=== PATIENT | female | born 1935 | race Two or more races ===

== ENCOUNTER 2016-06-22 16:18 | Inpatient (IN) | payer OTHER, MEDICAID ==
[~2016-06-22] VITALS: Ht 157.5 cm; Wt 66.5 kg
[2016-06-22 17:48] LABS: Basophils # (auto) 0 uL; Basophils % (auto) 0.7 % (0.0-2.0); Eosinophils # (auto) 0.2 uL; Eosinophils % (auto) 4.8 % (0.0-7.0); Hematocrit 42.6 % (36.0-46.0); Hemoglobin 14.1 g/dL (12.2-16.2); Lymphocytes # (auto) 1.4 uL; Lymphocytes % (auto) 26.4 % (10.0-50.0); Mean Corpuscular Hemoglobin 28.4 pg (28.0-32.0); Mean Corpuscular Volume 86.1 fL (80.0-100.0); Mean Platelet Volume 7.8 fL (7.4-10.4); Monocytes # (auto) 0.5 uL; Monocytes % (auto) 9.3 % (0.0-12.0); Neutrophils % (auto) 58.8 % (37.0-80.0); Platelet Count (auto) 156 10^3/uL (140-450); Red Cell Distribution Width 17.8 % (11.6-16.0); White Blood Cell 5.2 10^3/uL (4.4-10.8)
[2016-06-22 18:18] LABS: Albumin 3.3 g/dL (3.4-5.0); BUN/Creatinine Ratio 13.7; Bilirubin, Total 1.1 mg/dL (0.2-1.0); Calcium 9.5 mg/dL (8.5-10.1); Potassium 4.2 mmol/L (3.5-5.1); Total Protein 8.6 g/dL (6.4-8.2)
[2016-06-22] MEDS ORDERED: NITROGLYCERIN 0.2MG/HR TOPICAL PATCH TD ONE (19:45)
[2016-06-22] MEDS ORDERED: ONDANSETRON HCL 4 MG/2 ML VIAL IV ONE (19:45)
[2016-06-22] MEDS ORDERED: ASPirin 81 mg TAB PO ONE (19:45)
[2016-06-22] MEDS ORDERED: MORPHINE SULF INJ 2 MG/ML SYRINGE 1ML IV ONE (19:45)
[2016-06-22] MEDS ORDERED: ENOXAPARIN SOD 100 MG/1 ML SYRINGE SC ONE (19:45)
[2016-06-22 20:18] LABS: INR 1.1 (0.9-1.15); Partial Thromboplastin Time 26.1 sec (22.64-33.71); Prothrombin Time 11.9 sec (9.37-12.3)
[2016-06-22 20:54] LABS: B-Type Natriuretic Peptide 96.61 pg/mL (0-100)
[2016-06-22 21:03] LABS: Temperature: 23.1 C (20.0-25.0)
[2016-06-23] MEDS ORDERED: NITROGLYCERIN 0.4 MG SL TAB SL PRN (07:15)
[2016-06-23] MEDS ORDERED: MORPHINE SULF INJ 2 MG/ML SYRINGE 1ML IV PRN ×2 (07:15→07:30)
[2016-06-23] MEDS ORDERED: NITROGLYCERIN 0.4 MG SL TAB SL ONE (07:30)
[2016-06-23] MEDS ORDERED: DEXTROSE (50%) 50ML SYRG IV PRN (07:30)
[2016-06-23] MEDS ORDERED: ONDANSETRON HCL 4 MG/2 ML VIAL IV PRN (07:30)
[2016-06-23] MEDS ORDERED: ENOXAPARIN SOD 60 MG/0.6 ML SYRINGE SC ONE (07:30)
[2016-06-23 07:45] LABS: Albumin 3.2 g/dL (3.4-5.0); BUN/Creatinine Ratio 14.7; Bilirubin, Total 0.9 mg/dL (0.2-1.0); Calcium 9.2 mg/dL (8.5-10.1); Potassium 3.6 mmol/L (3.5-5.1); Total Protein 7.4 g/dL (6.4-8.2)
[2016-06-23 08:41] LABS: Basophils # (auto) 0 uL; Basophils % (auto) 0.8 % (0.0-2.0); Eosinophils # (auto) 0.2 uL; Eosinophils % (auto) 4.9 % (0.0-7.0); Hematocrit 40.6 % (36.0-46.0); Hemoglobin 13.2 g/dL (12.2-16.2); Lymphocytes # (auto) 1.4 uL; Lymphocytes % (auto) 31.5 % (10.0-50.0); Mean Corpuscular Hemoglobin 27.9 pg (28.0-32.0); Mean Corpuscular Hgb Conc. 32.6 g/dL (32.0-36.0); Mean Corpuscular Volume 85.6 fL (80.0-100.0); Monocytes # (auto) 0.5 uL; Monocytes % (auto) 10.5 % (0.0-12.0); Neutrophils # (auto) 2.4 uL; Neutrophils % (auto) 52.3 % (37.0-80.0); Platelet Count (auto) 123 10^3/uL (140-450); Red Cell Distribution Width 17.7 % (11.6-16.0); White Blood Cell 4.6 10^3/uL (4.4-10.8)
[2016-06-23 08:44] LABS: Urine Bilirubin Negative (Negative); Urine Color PINK (Yellow); Urine Glucose Normal (Normal); Urine Ketone Negative (Negative); Urine Nitrite Negative (Negative); Urine RBC 1644 /hpf (0 - 4); Urine Squamous Epithelial Cell FEW /hpf (<5); Urine Urobilinogen Normal (Negative); Urine pH 5.5 (5.0-8.0)
[2016-06-23 08:45] LABS: Urine Blood 3+ /uL (Negative)
[2016-06-23] MEDS ORDERED: cefTRIAXone 1GM/50ML D5W 50 ML IV SCH (09:00)
[2016-06-23] MEDS ORDERED: cefTRIAXone 1GM/50ML D5W 50 ML IV ONE (09:43)
[2016-06-23] MEDS ORDERED: LEVOFLOXACIN 500MG 100 ML IV ONE (09:45)
[2016-06-23] MEDS ORDERED: SOD CHL 0.45% 1,000 ML IV SCH (09:45)
[2016-06-23] MEDS: InsuLIN REG 1unit/0.01ml Soln (100units/ml) SC SCH ×2 (11:54→18:00)
[2016-06-23] MEDS: ACCU-CHEK COMFORT CURVE STRIP VI SCH ×2 (11:54→18:17)
[2016-06-23] MEDS ORDERED: INSU1.2I SC (12:29)
[2016-06-23] MEDS ORDERED: METO-158 PO (12:33)
[2016-06-23] MEDS ORDERED: SIMV-8 PO (12:33)
[2016-06-23] MEDS ORDERED: PANT1INJ3 IV (12:33)
[2016-06-23] MEDS ORDERED: FURO20TA PO (12:33)
[2016-06-23] MEDS ORDERED: CLON0.1T PO (12:33)
[2016-06-23] MEDS ORDERED: LOSA50TA6 PO (12:33)
[2016-06-23 13:00] VITALS: BP 135/65
[2016-06-23] MEDS ORDERED: SODIUM CHLORIDE 0.9% 1,000 ML IV SCH (14:30)
[2016-06-23 16:59] VITALS: BP 139/68
[2016-06-23 21:30] VITALS: BP 128/71
[2016-06-23] MEDS ORDERED: ENOXAPARIN SOD 60 MG/0.6 ML SYRINGE SC SCH (22:00)
[2016-06-23] MEDS ORDERED: ACETYLCYSTEINE 20%(200MG/ML) SOL 4ML ONE (22:25)
[2016-06-23] MEDS: ACETYLCYSTEINE ORAL for CIN 20%(200MG/ML) 4ML PO SCH (22:59)
[2016-06-24] MEDS: D5W/SOD CHL 0.45% 1,000 ML IV SCH ×3 (00:20→21:11)
[2016-06-24] MEDS: InsuLIN REG 1unit/0.01ml Soln (100units/ml) SC SCH ×5 (00:21→23:41)
[2016-06-24] MEDS: ACCU-CHEK COMFORT CURVE STRIP VI SCH ×5 (00:21→23:41)
[2016-06-24 04:41] VITALS: BP 138/54
[2016-06-24 06:30] LABS: Albumin 2.9 g/dL (3.4-5.0); BUN/Creatinine Ratio 16.6; Bilirubin, Total 0.6 mg/dL (0.2-1.0); Calcium 8.1 mg/dL (8.5-10.1); Potassium 3.9 mmol/L (3.5-5.1); Total Protein 6.9 g/dL (6.4-8.2)
[2016-06-24 08:00] VITALS: BP 155/64
[2016-06-24 08:42] VITALS: BP 155/64
[2016-06-24 08:49] LABS: Basophils # (auto) 0 uL; Basophils % (auto) 0.5 % (0.0-2.0); Eosinophils # (auto) 0.2 uL; Eosinophils % (auto) 5.7 % (0.0-7.0); Hematocrit 37.2 % (36.0-46.0); Hemoglobin 12.2 g/dL (12.2-16.2); Lymphocytes # (auto) 0.9 uL; Lymphocytes % (auto) 28.6 % (10.0-50.0); Mean Corpuscular Hemoglobin 28.2 pg (28.0-32.0); Mean Corpuscular Hgb Conc. 32.7 g/dL (32.0-36.0); Mean Corpuscular Volume 86.3 fL (80.0-100.0); Mean Platelet Volume 7.9 fL (7.4-10.4); Monocytes # (auto) 0.4 uL; Monocytes % (auto) 13.6 % (0.0-12.0); Neutrophils # (auto) 1.7 uL; Neutrophils % (auto) 51.6 % (37.0-80.0); Platelet Count (auto) 118 10^3/uL (140-450); Red Cell Distribution Width 17.5 % (11.6-16.0); White Blood Cell 3.3 10^3/uL (4.4-10.8)
[2016-06-24 09:04] LABS: INR 1.07 (0.9-1.15); Partial Thromboplastin Time 28.9 sec (22.64-33.71); Prothrombin Time 11.6 sec (9.37-12.3)
[2016-06-24] MEDS ORDERED: ASPirin-EC 81 mg tab PO SCH (10:00)
[2016-06-24] MEDS: ACETYLCYSTEINE ORAL for CIN 20%(200MG/ML) 4ML PO SCH ×2 (10:00→22:09)
[2016-06-24 10:25] LABS: Urine Bilirubin Negative (Negative); Urine Color PINK (Yellow); Urine Glucose Normal (Normal); Urine Ketone Negative (Negative); Urine Nitrite Negative (Negative); Urine RBC 1102 /hpf (0 - 4); Urine Squamous Epithelial Cell FEW /hpf (<5); Urine Urobilinogen Normal (Negative); Urine pH 6.5 (5.0-8.0)
[2016-06-24 10:26] LABS: Urine Blood 3+ /uL (Negative)
[2016-06-24] MEDS: cefTRIAXone 1GM/50ML D5W 50 ML IV SCH (10:31)
[2016-06-24 12:09] VITALS: BP 127/61
[2016-06-24 17:08] VITALS: BP 148/78
[2016-06-24] MEDS ORDERED: ATORVASTATIN 20 MG TAB PO SCH (22:00)
[2016-06-24 22:09] VITALS: BP 160/77
[2016-06-25 04:45] VITALS: BP 157/91
[2016-06-25] MEDS: D5W/SOD CHL 0.45% 1,000 ML IV SCH (06:00)
[2016-06-25] MEDS: InsuLIN REG 1unit/0.01ml Soln (100units/ml) SC SCH ×3 (06:35→18:00)
[2016-06-25] MEDS: ACCU-CHEK COMFORT CURVE STRIP VI SCH ×3 (06:36→18:00)
[2016-06-25 07:49] LABS: Urine Bilirubin Negative (Negative); Urine Color Yellow (Yellow); Urine Glucose TRACE mg/dL (Normal); Urine Ketone Negative (Negative); Urine Nitrite Negative (Negative); Urine RBC 5 /hpf (0 - 4); Urine Squamous Epithelial Cell FEW /hpf (<5); Urine Urobilinogen Normal (Negative)
[2016-06-25 07:51] LABS: Urine Blood 1+ /uL (Negative)
[2016-06-25 08:00] VITALS: BP 144/70
[2016-06-25] MEDS: cefTRIAXone 1GM/50ML D5W 50 ML IV SCH (08:56)
[2016-06-25 09:00] VITALS: BP 144/70
[2016-06-25] MEDS: ACETYLCYSTEINE ORAL for CIN 20%(200MG/ML) 4ML PO SCH (10:19)
[2016-06-25] MEDS ORDERED: LOSA50TA6 PO (12:47)
[2016-06-25] MEDS ORDERED: CIPR-217 PO (12:47)
[2016-06-25] MEDS ORDERED: METO-158 PO (12:47)
[2016-06-25] MEDS ORDERED: ASPI81CH43 PO (12:47)
[2016-06-25 13:00] VITALS: BP 179/80
[2016-06-25] MEDS ORDERED: NITROGLYCERIN 2.5 MG CAP PO SCH (14:00)
[2016-06-25 17:33] VITALS: BP 131/70
[2016-06-25 18:16] VITALS: BP 155/80
[2016-06-25] MEDS ORDERED: METOPROLOL TARTRATE 25 MG TAB PO SCH (22:00)
== END 2016-06-25 20:00 | disposition home or self-care (01) | DRG 281 ==
LOC: EDBD 16:18 → ER 16:22 → TELE 16:23 → TELE-E-ADS 06-23 11:11 → TELE-EAST 06-23 11:35
PROVIDERS: ADMIT Internal Medicine; ATTEND Internal Medicine
DX: I21.4 Non-ST elevation (NSTEMI) myocardial infarction (principal); J98.11 Atelectasis; N39.0 Urinary tract infection, site not specified; D69.6 Thrombocytopenia, unspecified; E11.22 Type 2 diabetes mellitus with diabetic chronic kidney disease; E66.01 Morbid (severe) obesity due to excess calories; E78.5 Hyperlipidemia, unspecified; I12.9 Hypertensive chronic kidney disease with stage 1 through stage 4 chronic kidney disease, or unspecified chronic kidney disease; M79.602 Pain in left arm; N18.2 Chronic kidney disease, stage 2 (mild); Z79.4 Long term (current) use of insulin; Z82.49 Family history of ischemic heart disease and other diseases of the circulatory system; Z83.3 Family history of diabetes mellitus; Z80.9 Family history of malignant neoplasm, unspecified; Z68.26 Body mass index [BMI] 26.0-26.9, adult
CPT/HCPCS: 36415; 71010; 76700; 78582; 80053; 81001; 82962; 83880; 84484; 85025; 85379; 85610; 85730; 87040; 93005; 93306; 96365; 96372; 96375; J0696; J1815; J2405

== ENCOUNTER 2019-07-25 10:45 | Inpatient (IN) | payer OTHER, MEDICAID ==
[~2019-07-25] VITALS: Ht 147.3 cm; Wt 71.5 kg
[~2019-07-25 10:45] MED LIST: ASPI81CH43 PO; CIPR500T4 PO; FURO1TAB33 PO; INSU1.2I SC; LOSA-69 PO; METO-158 PO; SIMV-8 PO
[2019-07-25] MEDS ORDERED: ASPirin 81 mg TAB PO ONE (11:15)
[2019-07-25 12:05] LABS: Hematocrit 41.6 % (36.0-46.0); Hemoglobin 13.7 g/dL (12.2-16.2); Mean Corpuscular Volume 90.8 fL (80.0-100.0); Platelet Count (auto) 118 10^3/uL (140-450); Red Blood Cells 4.59 10^6/uL (4.0-5.20); Red Cell Distribution Width 16.1 % (11.8-14.3); White Blood Cell 5.2 10^3/uL (4.4-10.8)
[2019-07-25 12:10] LABS: Band Neutrophils % (manual) 0; Basophils % (manual) 0 (0.0-2.0); Blast Cells 0; Metamyelocytes % 0; Myelocytes % 0; Promyelocytes % 0; Reactive Lymphocytes 0
[2019-07-25] MEDS ORDERED: FUROSEMIDE 40 MG/4 ML VIAL IV ONE (12:15)
[2019-07-25 12:21] LABS: Albumin 3.3 g/dL (3.4-5.0); Anion Gap 6 (5-15); Blood Urea Nitrogen 20 mg/dL (7-18); Calcium 8.4 mg/dL (8.5-10.1); Carbon Dioxide 25 mmol/L (21-32); Chloride 104 mmol/L (98-107); Glucose 316 mg/dL (74-106); Potassium 4.2 mmol/L (3.5-5.1); Sodium 135 mmol/L (136-145)
[2019-07-25 12:22] LABS: Eosinophils % (manual) 2 (0-7); Lymphocytes % (manual) 17 (10.0-50.0); Monocytes % (manual) 10 (0-12)
[2019-07-25 12:23] LABS: INR 1.14 (0.9-1.15); Partial Thromboplastin Time 27.9 sec (23.64-32.05)
[2019-07-25 12:26] LABS: Alanine Aminotransferase 27 U/L (13-56); Alkaline Phosphatase 110 U/L (45-117); Aspartate Aminotransferase 41 U/L (15-37); BUN/Creatinine Ratio 13.4; Bilirubin, Total 1.8 mg/dL (0.2-1.0); GFR African American 43 mL/min; GFR Non-African American 35 mL/min; Total Protein 8.6 g/dL (6.4-8.2)
[2019-07-25] MEDS ORDERED: FUROSEMIDE 20 MG/2 ML VIAL ONE ×2 (12:40→13:51)
[2019-07-25] MEDS ORDERED: IPRATROPIUM BROM 0.5 MG/2.5ML INH SOL NEB ONE (12:45)
[2019-07-25] MEDS ORDERED: AZITHROMYCIN 500MG/ 250ML 250 ML IV ONE (12:45)
[2019-07-25] MEDS ORDERED: cefTRIAXone 1GM/50ML D5W 50 ML IV ONE (12:45)
[2019-07-25] MEDS ORDERED: ALBUTEROL SULF 2.5 MG/0.5ML(0.5%) NEB SOLN NEB ONE (12:45)
[2019-07-25] MEDS ORDERED: ALBUTEROL SULF HFA 90MCG INH 200DOSE IN PRN (13:30)
[2019-07-25] MEDS ORDERED: FUROSEMIDE 20 MG/2 ML VIAL IV ONE (14:00)
[2019-07-25] MEDS ORDERED: ALBUTEROL SULF HFA 90MCG INH 200DOSE IN SCH (14:00)
[2019-07-25] MEDS ORDERED: hydrALAZINE HCL 20 MG/ML VL IV PRN (14:15)
[2019-07-25] MEDS ORDERED: hydrALAZINE HCL 20 MG/ML VL IV ONE (14:45)
[2019-07-25 16:55] VITALS: BP 144/87
[2019-07-25 16:55] LABS: CRP High Sensitivity 0.59 mg/dL (< 0.3)
[2019-07-25] MEDS ORDERED: PATIENTS OWN MEDICATION (Simvastatin 1 TAB) PO SCH (18:00)
[2019-07-25] MEDS: ATORVASTATIN 20 MG TAB PO SCH (18:16)
[2019-07-25 19:40] VITALS: BP 152/54
[2019-07-25 20:20] VITALS: BP 152/54
[2019-07-25 20:38] VITALS: BP 159/81
[2019-07-25 21:06] VITALS: BP 159/81
[2019-07-25] MEDS: FUROSEMIDE 100 MG/10ML VIAL IV SCH (22:03)
[2019-07-25] MEDS: hydrALAZINE HCL 25 MG TAB PO SCH (22:04)
[2019-07-25] MEDS: LOSARTAN POTASSIUM 50 MG TAB PO SCH (22:09)
[2019-07-25] MEDS: ALBUTEROL SULF 2.5 MG/0.5ML(0.5%) NEB SOLN NEB SCH (22:15)
[2019-07-25 22:46] LABS: Urine Bacteria FEW /hpf (None Seen); Urine Blood 1+ /uL (Negative); Urine Hyaline Cast FEW /lpf (0 - 2); Urine Specific Gravity 1.011 (1.001-1.035); Urine WBC 23 /hpf (0 - 5)
[2019-07-25] MEDS ORDERED: AMLO5TAB15 PO (23:26)
[2019-07-25] MEDS ORDERED: SITA50TA PO (23:26)
[2019-07-25] MEDS ORDERED: DONE5TAB11 PO (23:26)
[2019-07-25] MEDS ORDERED: GLIM2TAB33 PO (23:26)
[2019-07-25] MEDS ORDERED: LEVO88TA4 PO (23:26)
[2019-07-25] MEDS ORDERED: INSU1.2I SC (23:26)
[2019-07-26] VITALS (8 sets, daily range): BP systolic 106–139; BP diastolic 31–54
[2019-07-26] MEDS: traMADol HCL 50 MG TAB PO PRN (02:25)
[2019-07-26 05:07] LABS: Basophils # (auto) 0 10 ^3/uL (0-0.2); Basophils % (auto) 0.5 % (0.0-2.0); Eosinophils # (auto) 0 10 ^3/uL (0-0.8); Hematocrit 37.6 % (36.0-46.0); Hemoglobin 12.6 g/dL (12.2-16.2); Lymphocytes # (auto) 0.7 10 ^3/uL (0.4-5.4); Lymphocytes % (auto) 7.7 % (10.0-50.0); Mean Corpuscular Hemoglobin 30.1 pg (28.0-32.0); Mean Corpuscular Hgb Conc. 33.6 g/dL (32.0-36.0); Mean Corpuscular Volume 89.7 fL (80.0-100.0); Monocytes # (auto) 0.8 10 ^3/uL (0-1.3); Monocytes % (auto) 8.9 % (0.0-12.0); Neutrophils # (auto) 7.6 10 ^3/uL (1.6-8.6); Neutrophils % (auto) 82.9 % (37.0-80.0); Nucleated Red Blood Cells % 0.2 %; Platelet Count (auto) 117 10^3/uL (140-450); Red Blood Cells 4.19 10^6/uL (4.0-5.20); Red Cell Distribution Width 16.3 % (11.8-14.3); White Blood Cell 9.2 10^3/uL (4.4-10.8)
[2019-07-26 05:26] LABS: BUN/Creatinine Ratio 12.6; Calcium 8.5 mg/dL (8.5-10.1)
[2019-07-26] MEDS: ALBUTEROL SULF 2.5 MG/0.5ML(0.5%) NEB SOLN NEB SCH ×3 (07:43→22:42)
[2019-07-26] MEDS ORDERED: FUROSEMIDE 100 MG/10ML VIAL IV SCH (10:00)
[2019-07-26] MEDS: cefTRIAXone 1GM/50ML D5W 50 ML IV SCH (10:36)
[2019-07-26] MEDS: FUROSEMIDE 100 MG/10ML VIAL IV SCH ×2 (10:47→18:46)
[2019-07-26] MEDS: hydrALAZINE HCL 25 MG TAB PO SCH ×2 (10:48→22:44)
[2019-07-26] MEDS: METOPROLOL TARTRATE 50 MG TAB PO SCH ×2 (10:49→11:57)
[2019-07-26] MEDS ORDERED: DEXTROSE (50%) 50ML SYRG IV PRN ×2 (11:15→17:45)
[2019-07-26] MEDS: AZITHROMYCIN 500MG/ 250ML 250 ML IV SCH (11:30)
[2019-07-26] MEDS ORDERED: InsuLIN REG 1unit/0.01ml Soln (100units/ml) SC SCH ×2 (11:30→22:00)
[2019-07-26] MEDS: ACCU-CHEK COMFORT CURVE STRIP VI SCH ×3 (11:56→22:45)
[2019-07-26] MEDS: ATORVASTATIN 20 MG TAB PO SCH (18:53)
[2019-07-26] MEDS: LOSARTAN POTASSIUM 50 MG TAB PO SCH (22:00)
[2019-07-26] MEDS: methylPREDNISolone SOD SUCC 40 MG/ML VL IV SCH (22:44)
[2019-07-26] MEDS: DONEPEZIL HYDROCHLORIDE 5 MG TAB PO SCH (22:44)
[2019-07-26] MEDS: InsuLIN REG 1unit/0.01ml Soln (100units/ml) SC SCH (22:54)
[2019-07-27] VITALS (29 sets, daily range): BP systolic 91–123; BP diastolic 30–51
[2019-07-27 03:49] LABS: Basophils # (auto) 0 10 ^3/uL (0-0.2); Basophils % (auto) 0.2 % (0.0-2.0); Eosinophils # (auto) 0 10 ^3/uL (0-0.8); Hematocrit 35.3 % (36.0-46.0); Hemoglobin 11.4 g/dL (12.2-16.2); Lymphocytes # (auto) 0.4 10 ^3/uL (0.4-5.4); Lymphocytes % (auto) 4.7 % (10.0-50.0); Mean Corpuscular Hemoglobin 29.8 pg (28.0-32.0); Mean Corpuscular Hgb Conc. 32.4 g/dL (32.0-36.0); Monocytes # (auto) 0.3 10 ^3/uL (0-1.3); Monocytes % (auto) 2.8 % (0.0-12.0); Neutrophils # (auto) 8.4 10 ^3/uL (1.6-8.6); Neutrophils % (auto) 92.3 % (37.0-80.0); Nucleated Red Blood Cells % 0.2 %; Platelet Count (auto) 121 10^3/uL (140-450); Red Blood Cells 3.84 10^6/uL (4.0-5.20); Red Cell Distribution Width 16.8 % (11.8-14.3); White Blood Cell 9.1 10^3/uL (4.4-10.8)
[2019-07-27 04:05] LABS: Calcium 8.4 mg/dL (8.5-10.1); Potassium 3.9 mmol/L (3.5-5.1)
[2019-07-27] MEDS: FUROSEMIDE 100 MG/10ML VIAL IV SCH (06:00)
[2019-07-27] MEDS: ALBUTEROL SULF 2.5 MG/0.5ML(0.5%) NEB SOLN NEB SCH ×3 (06:03→22:48)
[2019-07-27] MEDS: LEVOTHYROXINE SODIUM 25 MCG TAB PO SCH (07:00)
[2019-07-27] MEDS: ACCU-CHEK COMFORT CURVE STRIP VI SCH ×4 (07:20→21:59)
[2019-07-27] MEDS: InsuLIN REG 1unit/0.01ml Soln (100units/ml) SC SCH ×4 (07:24→22:06)
[2019-07-27] MEDS: METOPROLOL TARTRATE 50 MG TAB PO SCH (09:43)
[2019-07-27] MEDS ORDERED: FUROSEMIDE INJECTION 10 ML ONE (09:47)
[2019-07-27] MEDS ORDERED: FUROSEMIDE 40 MG/4 ML VIAL IV SCH (10:00)
[2019-07-27] MEDS: cefTRIAXone 1GM/50ML D5W 50 ML IV SCH (10:07)
[2019-07-27] MEDS: methylPREDNISolone SOD SUCC 40 MG/ML VL IV SCH ×2 (10:07→21:58)
[2019-07-27] MEDS: AZITHROMYCIN 500MG/ 250ML 250 ML IV SCH (11:00)
[2019-07-27] MEDS ORDERED: DIGOXIN (250MCG/ML) 2 ML AMPULE IV ONE (15:40)
[2019-07-27] MEDS ORDERED: DIGOXIN (250MCG/ML) 2 ML AMPULE ONE (15:42)
[2019-07-27] MEDS ORDERED: AMIODARONE 450mg/250ml AE 250 ML IV ONE (15:44)
[2019-07-27] MEDS ORDERED: AMIODARONE HCL (50 MG/ ML) 3 ML VIAL IV ONE (15:44)
[2019-07-27] MEDS ORDERED: AMIODARONE HCL 150 MG in D5W 5% 100 ML IV ONE (15:45)
[2019-07-27] MEDS ORDERED: AMIODARONE 450mg/250ml AE 250 ML IV SCH ×2 (16:00→22:00)
[2019-07-27 16:35] LABS: BUN/Creatinine Ratio 17.6; Magnesium 2.7 mg/dL (1.6-2.6); Potassium 4.1 mmol/L (3.5-5.1)
[2019-07-27] MEDS ORDERED: SODIUM CHLORIDE 0.9% 500 ML IV ONE (17:45)
[2019-07-27] MEDS: ATORVASTATIN 20 MG TAB PO SCH (19:00)
[2019-07-27] MEDS: ALBUMIN 25% 100 ML IV SCH ×2 (19:00→20:23)
[2019-07-27] MEDS: hydrALAZINE HCL 25 MG TAB PO SCH (21:58)
[2019-07-27] MEDS: DONEPEZIL HYDROCHLORIDE 5 MG TAB PO SCH (22:00)
[2019-07-28] VITALS (31 sets, daily range): BP systolic 102–149; BP diastolic 34–52
[2019-07-28 03:57] LABS: Basophils # (auto) 0 10 ^3/uL (0-0.2); Basophils % (auto) 0.1 % (0.0-2.0); Eosinophils # (auto) 0 10 ^3/uL (0-0.8); Hematocrit 35.7 % (36.0-46.0); Hemoglobin 11.3 g/dL (12.2-16.2); Lymphocytes # (auto) 0.5 10 ^3/uL (0.4-5.4); Lymphocytes % (auto) 3.5 % (10.0-50.0); Mean Corpuscular Hemoglobin 29.3 pg (28.0-32.0); Mean Corpuscular Hgb Conc. 31.7 g/dL (32.0-36.0); Mean Corpuscular Volume 92.5 fL (80.0-100.0); Monocytes # (auto) 0.5 10 ^3/uL (0-1.3); Monocytes % (auto) 3.3 % (0.0-12.0); Neutrophils # (auto) 13.4 10 ^3/uL (1.6-8.6); Neutrophils % (auto) 93.1 % (37.0-80.0); Nucleated Red Blood Cells % 0.1 %; Platelet Count (auto) 144 10^3/uL (140-450); Red Blood Cells 3.87 10^6/uL (4.0-5.20); Red Cell Distribution Width 17.5 % (11.8-14.3); White Blood Cell 14.4 10^3/uL (4.4-10.8)
[2019-07-28 04:10] LABS: BUN/Creatinine Ratio 21.6; Potassium 4.2 mmol/L (3.5-5.1)
[2019-07-28] MEDS: ALBUTEROL SULF 2.5 MG/0.5ML(0.5%) NEB SOLN NEB SCH ×3 (05:43→22:04)
[2019-07-28] MEDS: ACCU-CHEK COMFORT CURVE STRIP VI SCH ×4 (06:38→20:11)
[2019-07-28] MEDS: InsuLIN REG 1unit/0.01ml Soln (100units/ml) SC SCH ×4 (06:42→21:42)
[2019-07-28] MEDS: LEVOTHYROXINE SODIUM 25 MCG TAB PO SCH (06:52)
[2019-07-28] MEDS: METOPROLOL TARTRATE 25 MG TAB PO SCH (10:13)
[2019-07-28] MEDS: AZITHROMYCIN 500MG/ 250ML 250 ML IV SCH (10:13)
[2019-07-28] MEDS: methylPREDNISolone SOD SUCC 40 MG/ML VL IV SCH ×2 (10:13→20:10)
[2019-07-28] MEDS: cefTRIAXone 1GM/50ML D5W 50 ML IV SCH (10:13)
[2019-07-28] MEDS: hydrALAZINE HCL 25 MG TAB PO SCH ×2 (10:13→20:10)
[2019-07-28] MEDS: HEPARIN SODIUM (PORCINE) 5000 UNITS/ML 1ML VIAL SC SCH ×2 (10:14→20:18)
[2019-07-28 12:38] LABS: Urine Bacteria NONE SEEN /hpf (None Seen); Urine Blood 1+ /uL (Negative); Urine Hyaline Cast MANY /lpf (0 - 2); Urine Mucus FEW (None Seen); Urine Specific Gravity 1.015 (1.001-1.035); Urine WBC 62 /hpf (0 - 5)
[2019-07-28 12:53] LABS: Creatinine, Urine 132 mg/dL (30.0-125.0); Sodium Urine 17 mmol/L (40-220)
[2019-07-28 16:44] LABS: Calcium 7.6 mg/dL (8.5-10.1); Potassium 4.1 mmol/L (3.5-5.1)
[2019-07-28] MEDS: ATORVASTATIN 20 MG TAB PO SCH (18:09)
[2019-07-28] MEDS: DONEPEZIL HYDROCHLORIDE 5 MG TAB PO SCH (20:10)
[2019-07-28] MEDS: traMADol HCL 50 MG TAB PO PRN (20:11)
[2019-07-29] VITALS (66 sets, daily range): BP systolic 73–148; BP diastolic 14–50
[2019-07-29 03:23] LABS: Basophils # (auto) 0 10 ^3/uL (0-0.2); Eosinophils # (auto) 0 10 ^3/uL (0-0.8); Hematocrit 27.7 % (36.0-46.0); Hemoglobin 8.9 g/dL (12.2-16.2); Lymphocytes # (auto) 0.4 10 ^3/uL (0.4-5.4); Lymphocytes % (auto) 2.9 % (10.0-50.0); Mean Corpuscular Hemoglobin 29.5 pg (28.0-32.0); Mean Corpuscular Hgb Conc. 32.1 g/dL (32.0-36.0); Mean Corpuscular Volume 91.8 fL (80.0-100.0); Monocytes # (auto) 0.6 10 ^3/uL (0-1.3); Monocytes % (auto) 4.9 % (0.0-12.0); Neutrophils # (auto) 11.9 10 ^3/uL (1.6-8.6); Neutrophils % (auto) 92.2 % (37.0-80.0); Nucleated Red Blood Cells % 0.2 %; Platelet Count (auto) 174 10^3/uL (140-450); Red Blood Cells 3.02 10^6/uL (4.0-5.20); Red Cell Distribution Width 17.2 % (11.8-14.3); White Blood Cell 12.9 10^3/uL (4.4-10.8)
[2019-07-29 03:43] LABS: Calcium 7.7 mg/dL (8.5-10.1); Potassium 4.1 mmol/L (3.5-5.1)
[2019-07-29 03:45] LABS: BUN/Creatinine Ratio 24.9
[2019-07-29] MEDS ORDERED: MORPHINE SULF INJ 2 MG/ML SYRINGE 1ML IV ONE (05:30)
[2019-07-29] MEDS: LEVOTHYROXINE SODIUM 25 MCG TAB PO SCH (05:32)
[2019-07-29] MEDS: ACCU-CHEK COMFORT CURVE STRIP VI SCH ×4 (05:33→22:28)
[2019-07-29] MEDS: InsuLIN REG 1unit/0.01ml Soln (100units/ml) SC SCH ×4 (06:27→22:29)
[2019-07-29] MEDS: ALBUTEROL SULF 2.5 MG/0.5ML(0.5%) NEB SOLN NEB SCH ×3 (07:02→23:00)
[2019-07-29 08:42] LABS: Basophils # (auto) 0 10 ^3/uL (0-0.2); Eosinophils # (auto) 0 10 ^3/uL (0-0.8); Hemoglobin 7.4 g/dL (12.2-16.2); Lymphocytes # (auto) 0.4 10 ^3/uL (0.4-5.4); Monocytes # (auto) 0.5 10 ^3/uL (0-1.3)
[2019-07-29 08:43] LABS: Basophils % (auto) 0.3 % (0.0-2.0); Hematocrit 22.4 % (36.0-46.0); Lymphocytes % (auto) 3.8 % (10.0-50.0); Mean Corpuscular Hemoglobin 30.7 pg (28.0-32.0); Mean Corpuscular Hgb Conc. 33.1 g/dL (32.0-36.0); Mean Corpuscular Volume 92.7 fL (80.0-100.0); Monocytes % (auto) 4.6 % (0.0-12.0); Neutrophils # (auto) 9.5 10 ^3/uL (1.6-8.6); Neutrophils % (auto) 91.3 % (37.0-80.0); Nucleated Red Blood Cells % 0.7 %; Platelet Count (auto) 160 10^3/uL (140-450); Red Blood Cells 2.42 10^6/uL (4.0-5.20); Red Cell Distribution Width 16.8 % (11.8-14.3); White Blood Cell 10.4 10^3/uL (4.4-10.8)
[2019-07-29] MEDS ORDERED: SODIUM CHLORIDE 0.9% 1,000 ML IV SCH ×2 (09:30→13:15)
[2019-07-29] MEDS: AZITHROMYCIN 500MG/ 250ML 250 ML IV SCH (09:39)
[2019-07-29] MEDS: cefTRIAXone 1GM/50ML D5W 50 ML IV SCH (09:39)
[2019-07-29] MEDS: methylPREDNISolone SOD SUCC 40 MG/ML VL IV SCH (09:40)
[2019-07-29] MEDS ORDERED: SODIUM CHLORIDE 0.9% 500 ML IV ONE (10:00)
[2019-07-29] MEDS: METOPROLOL TARTRATE 25 MG TAB PO SCH (10:00)
[2019-07-29] MEDS ORDERED: PANTOPRAZOLE 40 MG/10 ML VIAL INJ IV ONE (10:30)
[2019-07-29] MEDS: PANTOPRAZOLE 40mg/50ML NS AE 50 ML IV SCH ×3 (11:36→21:10)
[2019-07-29] MEDS ORDERED: NOREPINEPHRINE 8 MG/250ML KIT 250 ML IV ONE (12:22)
[2019-07-29] MEDS: NOREPINEPHRINE 8 MG/250ML KIT 250 ML IV SCH (14:04)
[2019-07-29 14:09] LABS: Hematocrit 20.8 % (36.0-46.0)
[2019-07-29 14:11] LABS: Hemoglobin 6.4 g/dL (12.2-16.2)
[2019-07-29] MEDS ORDERED: FUROSEMIDE 100 MG/10ML VIAL IV ONE (16:15)
[2019-07-29] MEDS: ATORVASTATIN 20 MG TAB PO SCH (17:54)
[2019-07-29] MEDS ORDERED: ETOMIDATE (2MG/ML) 20ML VIAL IV ONE ×2 (18:51→19:15)
[2019-07-29] MEDS ORDERED: SUCCINYLCHOLINE CHLORIDE 20 MG/ML 10ML VIAL IV ONE ×2 (18:51→19:15)
[2019-07-29] MEDS ORDERED: MIDAZOLAM DRIP 50 mg/50mL 50 ML IV ONE (18:56)
[2019-07-29] MEDS: MIDAZOLAM DRIP 50 mg/50mL 50 ML IV SCH (21:00)
[2019-07-29] MEDS ORDERED: SODIUM BICARBONATE 8.4 % INJ 50ML VIAL IV ONE ×3 (21:15→23:30)
[2019-07-29] MEDS ORDERED: SODIUM BICARBONATE 50ML VIAL 150 ML in SODIUM CHLORIDE 0.9% 1,000 ML IV SCH (21:30)
[2019-07-29] MEDS: DONEPEZIL HYDROCHLORIDE 5 MG TAB PO SCH (22:12)
[2019-07-29] MEDS: PHENYLEPHRINE INJ 40 MG in SODIUM CHL 0.9% 250 ML IV SCH ×2 (22:20→22:25)
[2019-07-30] VITALS (65 sets, daily range): BP systolic 76–119; BP diastolic 16–51
[2019-07-30] MEDS: PHENYLEPHRINE INJ 40 MG in SODIUM CHL 0.9% 250 ML IV SCH ×3 (02:01→09:51)
[2019-07-30] MEDS: NOREPINEPHRINE 8 MG/250ML KIT 250 ML IV SCH (02:35)
[2019-07-30] MEDS ORDERED: PHENYLEPHRINE IV 250 ML IV ONE (02:37)
[2019-07-30] MEDS: PANTOPRAZOLE 40mg/50ML NS AE 50 ML IV SCH ×2 (03:12→08:45)
[2019-07-30 03:49] LABS: Mean Corpuscular Hemoglobin 29.9 pg (28.0-32.0); Mean Corpuscular Volume 93.6 fL (80.0-100.0); Platelet Count (auto) 118 10^3/uL (140-450); Red Cell Distribution Width 15.9 % (11.8-14.3); White Blood Cell 15.3 10^3/uL (4.4-10.8)
[2019-07-30 03:58] LABS: Basophils % (manual) 0 (0.0-2.0); Blast Cells 0; Eosinophils % (manual) 0 (0-7); Metamyelocytes % 0; Myelocytes % 0; Promyelocytes % 0; Reactive Lymphocytes 0
[2019-07-30 04:00] LABS: Potassium 5.4 mmol/L (3.5-5.1)
[2019-07-30] MEDS ORDERED: SODIUM BICARBONATE 50ML VIAL 150 ML in SODIUM CHLORIDE 0.9% 1,000 ML IV SCH (04:15)
[2019-07-30] MEDS: DOPamine 1600MCG/ML D5W 250 ML IV SCH ×2 (04:24→08:47)
[2019-07-30] MEDS ORDERED: PHENYLEPHRINE HCL 10 MG/ML VL ONE (04:28)
[2019-07-30 05:23] LABS: Band Neutrophils % (manual) 6; Lymphocytes % (manual) 3 (10.0-50.0); Monocytes % (manual) 9 (0-12)
[2019-07-30] MEDS ORDERED: SODIUM ZIRCONIUM CYCL 10 GM PAK PO ONE (06:00)
[2019-07-30] MEDS ORDERED: VASOPRESSIN 50 UNITS in D5W 5% 247.5 ML IV SCH (06:00)
[2019-07-30] MEDS ORDERED: SODIUM ZIRCONIUM CYCL 10 GM PAK ONE (06:00)
[2019-07-30] MEDS: ALBUTEROL SULF 2.5 MG/0.5ML(0.5%) NEB SOLN NEB SCH ×2 (06:00→09:12)
[2019-07-30] MEDS ORDERED: VASOPRESSIN 20 UNIT/ML ONE (06:03)
[2019-07-30] MEDS: ACCU-CHEK COMFORT CURVE STRIP VI SCH ×2 (06:30→11:38)
[2019-07-30] MEDS: LEVOTHYROXINE SODIUM 25 MCG TAB PO SCH (07:00)
[2019-07-30] MEDS ORDERED: SODIUM BICARBONATE 50ML VIAL 150 ML in D5W 5% 1,000 ML IV SCH (08:30)
[2019-07-30] MEDS ORDERED: NOREPINEPHRINE BITARTRATE 16 MG in SODIUM CHL 0.9% 250 ML IV SCH (08:30)
[2019-07-30] MEDS: InsuLIN REG 1unit/0.01ml Soln (100units/ml) SC SCH ×2 (08:50→11:43)
[2019-07-30] MEDS ORDERED: SODIUM BICARBONATE 8.4 % INJ 50ML VIAL IV ONE (09:15)
[2019-07-30] MEDS ORDERED: EPINEPHrine HCL 250 ML IV SCH (09:27)
[2019-07-30] MEDS: METOPROLOL TARTRATE 25 MG TAB PO SCH (10:00)
[2019-07-30] MEDS: cefTRIAXone 1GM/50ML D5W 50 ML IV SCH (10:15)
[2019-07-30] MEDS: MIDAZOLAM DRIP 50 mg/50mL 50 ML IV SCH (10:31)
[2019-07-30] MEDS: methylPREDNISolone SOD SUCC 40 MG/ML VL IV SCH (10:34)
[2019-07-30] MEDS: AZITHROMYCIN 500MG/ 250ML 250 ML IV SCH (10:39)
[2019-07-30] MEDS ORDERED: NOREPINEPHRINE 8 MG/250ML KIT 250 ML IV ONE (10:58)
[2019-07-30] MEDS ORDERED: NOREPINEPHRINE BITARTRATE 16 MG in D5W 5% 250 ML IV SCH (11:15)
== END 2019-07-30 21:55 | disposition expired | DRG 871 ==
LOC: ER 10:45 → EDBD 10:45 → OVERFLOW 10:46 → DOU IN ICU 19:40 → ICU WEST 07-30 07:33
PROVIDERS: ADMIT Internal Medicine; ATTEND Internal Medicine
PROC: 5A09357 Assistance with Respiratory Ventilation, Less than 24 Consecutive Hours, Continuous Positive Airway Pressure (ICD-10-PCS; 2019-07-26)
PROC: 5A09357 Assistance with Respiratory Ventilation, Less than 24 Consecutive Hours, Continuous Positive Airway Pressure (ICD-10-PCS; 2019-07-27)
PROC: 5A09357 Assistance with Respiratory Ventilation, Less than 24 Consecutive Hours, Continuous Positive Airway Pressure (ICD-10-PCS; 2019-07-28)
PROC: 30233N1 Transfusion of Nonautologous Red Blood Cells into Peripheral Vein, Percutaneous Approach (ICD-10-PCS; 2019-07-28)
PROC: 02H633Z Insertion of Infusion Device into Right Atrium, Percutaneous Approach (ICD-10-PCS; principal; 2019-07-29)
PROC: 5A1935Z Respiratory Ventilation, Less than 24 Consecutive Hours (ICD-10-PCS; 2019-07-29)
PROC: 0BH17EZ Insertion of Endotracheal Airway into Trachea, Via Natural or Artificial Opening (ICD-10-PCS; 2019-07-29)
DX: A41.9 Sepsis, unspecified organism (principal); J18.9 Pneumonia, unspecified organism; I50.43 Acute on chronic combined systolic (congestive) and diastolic (congestive) heart failure; J96.20 Acute and chronic respiratory failure, unspecified whether with hypoxia or hypercapnia; N17.0 Acute kidney failure with tubular necrosis; R65.21 Severe sepsis with septic shock; G92 Toxic encephalopathy; I13.0 Hypertensive heart and chronic kidney disease with heart failure and stage 1 through stage 4 chronic kidney disease, or unspecified chronic kidney disease; K92.2 Gastrointestinal hemorrhage, unspecified; N18.3 Chronic kidney disease, stage 3 (moderate); E78.5 Hyperlipidemia, unspecified; D69.6 Thrombocytopenia, unspecified; E11.22 Type 2 diabetes mellitus with diabetic chronic kidney disease; E87.6 Hypokalemia; D64.9 Anemia, unspecified; F03.90 Unspecified dementia, unspecified severity, without behavioral disturbance, psychotic disturbance, mood disturbance, and anxiety; I25.10 Atherosclerotic heart disease of native coronary artery without angina pectoris; I48.91 Unspecified atrial fibrillation; Z79.82 Long term (current) use of aspirin; Z79.899 Other long term (current) drug therapy; Z80.9 Family history of malignant neoplasm, unspecified; Z82.49 Family history of ischemic heart disease and other diseases of the circulatory system; Z86.73 Personal history of transient ischemic attack (TIA), and cerebral infarction without residual deficits; Z83.3 Family history of diabetes mellitus; Z03.818 Encounter for observation for suspected exposure to other biological agents ruled out
CPT/HCPCS: 36415; 36600; 70450; 71045; 76775; 80048; 80053; 81001; 82570; 82728; 82805; 82962; 83605; 83615; 83735; 83880; 84300; 84443; 84484; 85007; 85014; 85018; 85025; 85027; 85610; 85652; 85730; 86141; 86850; 86900; 86901; 86920; 87040; 87070; 87077; 87186; 87205; 87804; 87880; 93005; 93306; 94002; 94003; 94640; 94660; 97163; C9113; G0378; J0171; J0330; J0696; J1815; J2250; J7060; P9047